=== PATIENT | male | born 1935 | race Caucasian/White ===

== ENCOUNTER 2020-04-14 07:56 | Inpatient (IN) | payer MEDICARE, BC ==
[~2020-04-14] VITALS: Ht 177.8 cm; Wt 86.2 kg
[2020-04-14 08:23] LABS: BASOPHILS ABSOLUTE AUTO 0.07 K/mm3 (0.00-0.23); BASOPHILS PERCENT AUTO 0 % (0-2); EOSINOPHILS ABSOLUTE AUTO 0.14 K/mm3 (0.00-0.68); EOSINOPHILS PERCENT AUTO 1 % (0-6); Hematocrit 42.9 % (37.0-53.0); Hemoglobin 13.7 g/dL (13.5-17.5); IMMATURE GRAN ABSOLUTE AUTO 0.12 K/mm3 (0.00-0.10); IMMATURE GRAN PERCENT AUTO 1 % (0-1); LYMPHOCYTES ABSOLUTE AUTO 2.45 K/mm3 (0.84-5.20); LYMPHOCYTES PERCENT AUTO 15 % (21-46); MONOCYTES ABSOLUTE AUTO 0.95 K/mm3 (0.16-1.47); MONOCYTES PERCENT AUTO 6 % (4-13); Mean Corpuscular HGB 33.3 pg (26.0-34.0); Mean Corpuscular HGB Conc 31.9 g/dL (31.5-36.5); Mean Corpuscular Volume 104 fL (80-100); Mean Platelet Volume 10.8 fL (9.1-12.4); NEUTROPHILS ABSOLUTE AUTO 12.23 K/mm3 (1.96-9.15); NEUTROPHILS PERCENT AUTO 77 % (41-73); Platelet Count 183 K/mm3 (150-400); RDW Coefficient Variation 13.3 % (11.7-14.2); RDW Standard Deviation 51.3 fL (35.1-46.3); Red Blood Cell Count 4.11 M/mm3 (4.30-5.90); White Blood Cell Count 15.96 K/mm3 (4.00-11.30)
[2020-04-14 08:57] LABS: Albumin, Blood 3.6 g/dL (3.4-5.0); Albumin/Globulin Ratio 1.1 (0.8-1.8); Bilirubin, Total 0.5 mg/dL (0.1-1.0); Bun/Creatinine Ratio 22.4 (12.0-20.0); Creatinine, Blood 1.61 mg/dL (0.60-1.20); Globulin, Blood 3.4 g/dL (2.2-4.0); Potassium, Blood 5.3 mmol/L (3.5-5.5)
[2020-04-14] MEDS ORDERED: ASPI81CH PO (12:43)
[2020-04-14] MEDS ORDERED: Lasix20 MG PO (12:44)
[2020-04-14] MEDS ORDERED: LISI5 PO (12:46)
[2020-04-14 13:39] LABS: Source, Urine Catheter
[2020-04-14 14:40] LABS: Appearance, Urine Clear (Clear); Color, Urine Yellow (P-Yellow); Leukocyte Esterase, Urine Neg (Neg); Nitrite, Urine Neg (Neg); Specific Gravity, Urine 1.005 (1.003-1.022)
[2020-04-14 14:42] LABS: Bilirubin, Urine Neg (Neg); Blood, Urine Neg (Neg); Glucose Qualitative, Urine Neg (Neg); Ketones, Urine Neg (Neg); Protein, Urine Trace (Neg); Urobilinogen, Urine NORM (Normal)
--- NOTE | 2020-04-14 16:10 | NUR ---
HOME MEDICATION LIST PT REPORTS HE DOES NOT KNOW HIS HOME MEDICATION DOSAGES. PT STATES HE HAS A LIST ON HIS COMPUTER; HOWEVER HE HAS NO ONE AVALIABLE TO GET HIS LIST OFF OF HIS COMPUTER. HIS PHARMACY IS IN [facility] AND HE REPORTS IT IS CLOSED TODAY. PT REPORTS HE RECENTLY MOVED HERE AND HAS NOT HAD HIS PRESCRIPTIONS TRANSFERRED.
--- NOTE | 2020-04-14 18:38 | NUR ---
SHIFT SUMMARY PT WAS ADMITTED TODAY AFTER A GROUND LEVEL FALL AT [facility], HE HAS A RIGHT HIP FX. PT HAS BEEN ALERT AND ORIENTED T/O THE DAY. HE HAS A RIGHT SIDE FACIAL DROOP AND SLURRED SPEECH AT BASELINE, R/T A RECENT CVA. PAIN HAS BEEN MANAGED WITH IV PAIN MEDICATION. DILAUDID APPEARS TO WORK THE BEST. FENTANYL PROVIDED NO RELIEF AND RESULTED IN NAUSEA. BUCKS TRACTION IN PLACE TO DECREASE SPASMS AND APPEARS TO HAVE IMPROVED PAIN. PT IS PAINFUL WITH REPOSITIONING BUT TOLERATES WELL. VSS. PLAN FOR POSSIBLE SURGERY TOMORROW.
--- NOTE | 2020-04-14 19:34 | NUR ---
SPOKE TO HOSPITALIST FARIHA REGARDING PT'S PAIN. FENT MADE PT NAUSEOUS AND PO NORCO WAS INEFFECTIVE PT REPORTED 9/10 PAIN BEFORE AND AFTER MEDICATION, PAIN JUMPED TO 12/10 WHEN MOVING PER PATIENT. NEW ORDERS FOR MEDICATIONS RECIEVED SEE EMAR, WILL ADMINISTER AND MONITOR PAIN LEVELS. ORDERS FOR CONTINOUS BIOX RECIEVED WILL CALL RESPIRATORY.
--- NOTE | 2020-04-14 22:35 | NUR ---
ASSUMED CARE OF PATIENT FROM MABEL ROMERO
--- NOTE | 2020-04-15 03:27 | NUR ---
SHIFT SUMMARY A/O, ABLE TO MAKE NEEDS KNOWN. MILD SLURRING OF SPEECH; DIFFICULTY TO UNDERSTAND AT TIMES. COOPERATIVE WITH CARE. CALLS AND ANSWERS QUESTIONS APPROPRIATELY. C/O PAIN/DISCOMFORT TO R HIP/LEG, RATES 10/10; MEDICATED PER EMAR. APPEARS TO REST OFF AND ON. NO ACUTE CHANGES NOTED OVERNIGHT. REMAINS IN TRACTION. WCTM. BED IN LOWEST POSITION. CALL LIGHT AND BELONGINGS WITHIN REACH. REPORT TO ONCOMING RN.
[2020-04-15 03:57] LABS: BASOPHILS ABSOLUTE AUTO 0.06 K/mm3 (0.00-0.23); BASOPHILS PERCENT AUTO 1 % (0-2); EOSINOPHILS ABSOLUTE AUTO 0.24 K/mm3 (0.00-0.68); EOSINOPHILS PERCENT AUTO 2 % (0-6); Hematocrit 45.8 % (37.0-53.0); Hemoglobin 14.6 g/dL (13.5-17.5); IMMATURE GRAN ABSOLUTE AUTO 0.05 K/mm3 (0.00-0.10); IMMATURE GRAN PERCENT AUTO 0 % (0-1); LYMPHOCYTES ABSOLUTE AUTO 2.69 K/mm3 (0.84-5.20); LYMPHOCYTES PERCENT AUTO 24 % (21-46); MONOCYTES ABSOLUTE AUTO 1.43 K/mm3 (0.16-1.47); MONOCYTES PERCENT AUTO 13 % (4-13); Mean Corpuscular HGB 33.7 pg (26.0-34.0); Mean Corpuscular HGB Conc 31.9 g/dL (31.5-36.5); Mean Corpuscular Volume 106 fL (80-100); Mean Platelet Volume 10.4 fL (9.1-12.4); NEUTROPHILS ABSOLUTE AUTO 6.92 K/mm3 (1.96-9.15); NEUTROPHILS PERCENT AUTO 61 % (41-73); Platelet Count 148 K/mm3 (150-400); RDW Coefficient Variation 13.2 % (11.7-14.2); RDW Standard Deviation 51.9 fL (35.1-46.3); Red Blood Cell Count 4.33 M/mm3 (4.30-5.90); White Blood Cell Count 11.39 K/mm3 (4.00-11.30)
[2020-04-15 04:15] LABS: Bun/Creatinine Ratio 23.2 (12.0-20.0); Calcium, Blood 8.6 mg/dL (8.5-10.1); Creatinine, Blood 1.51 mg/dL (0.60-1.20); Potassium, Blood 5.9 mmol/L (3.5-5.5)
--- NOTE | 2020-04-15 08:11 | NUR ---
PT TAKEN TO SURGERY AT APPROXIMATELY 0800.
--- NOTE | 2020-04-15 09:39 | NUR ---
04/15/20 0939 Britt Rossi PATIENT ARRIVED WITH TORRES. DID NOT WANT PAS ON NON OPERATVE LEG.
--- NOTE | 2020-04-15 17:04 | NUR ---
PAIN PT STARTED HAVING EXTREME PAIN AFTER SURGERY. HE WAS MOANING IN PAIN DESPITE HAVING IV AND PO PAIN MEDICATION. DR. MCCURDY WAS NOTIFIED. SINCE PAIN MEDICATION WAS NOT HELPFUL, PT WAS ASSISTED TO THE EDGE OF THE BED FOR CHANGE IN POSITION. PT TOLERATED SITTING AT THE EDGE OF THE BED WELL AND WAS ASSISTED TO SIT IN A RECLINER. PAIN HAS IMPROVED.
--- NOTE | 2020-04-15 19:48 | NUR ---
SHIFT SUMMARY PT IS POD#0 TODAY FROM R YEMI HIP WITH DR. MCCURDY. PAIN HAS IMPROVED THIS EVENING WITH AFTER PT SAT UP TO THE CHAIR. VSS. REPORT GIVEN TO ARLETH MONROE.
[2020-04-16 04:16] LABS: BASOPHILS ABSOLUTE AUTO 0.04 K/mm3 (0.00-0.23); BASOPHILS PERCENT AUTO 0 % (0-2); EOSINOPHILS ABSOLUTE AUTO 0.05 K/mm3 (0.00-0.68); EOSINOPHILS PERCENT AUTO 0 % (0-6); Hematocrit 34.9 % (37.0-53.0); Hemoglobin 10.9 g/dL (13.5-17.5); IMMATURE GRAN ABSOLUTE AUTO 0.07 K/mm3 (0.00-0.10); IMMATURE GRAN PERCENT AUTO 1 % (0-1); LYMPHOCYTES PERCENT AUTO 14 % (21-46); MONOCYTES ABSOLUTE AUTO 1.63 K/mm3 (0.16-1.47); MONOCYTES PERCENT AUTO 12 % (4-13); Mean Corpuscular HGB 32.8 pg (26.0-34.0); Mean Corpuscular HGB Conc 31.2 g/dL (31.5-36.5); Mean Corpuscular Volume 105 fL (80-100); Mean Platelet Volume 11.1 fL (9.1-12.4); NEUTROPHILS PERCENT AUTO 73 % (41-73); Platelet Count 130 K/mm3 (150-400); RDW Coefficient Variation 13.1 % (11.7-14.2); RDW Standard Deviation 50.4 fL (35.1-46.3); Red Blood Cell Count 3.32 M/mm3 (4.30-5.90); White Blood Cell Count 14.09 K/mm3 (4.00-11.30)
--- NOTE | 2020-04-16 04:57 | NUR ---
SHIFT SUMMARY POD 1 R YEMI HIP [id number], SINUS TACH OCCASIONALLY DURING THE NIGHT. PT MEDICATED FOR PAIN WITH 1 ROXICODONE AT A TIME, TOLERATED WELL PAIN MANAGED AROUND A 3-4 OF 10. C/O HEARTBURN DURING SHIFT, MEDICATION EFFECTIVE FOR PT. ON .5 LITERS VIA NASAL CANULA OCCASIONAL DIPS TO 88% WHILE SLEEPING. PT DENIES SOB DURING NIGHT. PT REPORTED BEING ABLE TO GET SOME SLEEP TONIGHT. PLAN WILL BE TO WORK WITH PT/OT.
[2020-04-16 14:34] LABS: BASOPHILS ABSOLUTE AUTO 0.05 K/mm3 (0.00-0.23); BASOPHILS PERCENT AUTO 0 % (0-2); EOSINOPHILS ABSOLUTE AUTO 0.12 K/mm3 (0.00-0.68); EOSINOPHILS PERCENT AUTO 1 % (0-6); Hematocrit 34.1 % (37.0-53.0); Hemoglobin 10.9 g/dL (13.5-17.5); IMMATURE GRAN ABSOLUTE AUTO 0.04 K/mm3 (0.00-0.10); IMMATURE GRAN PERCENT AUTO 0 % (0-1); LYMPHOCYTES ABSOLUTE AUTO 1.47 K/mm3 (0.84-5.20); LYMPHOCYTES PERCENT AUTO 12 % (21-46); MONOCYTES ABSOLUTE AUTO 1.42 K/mm3 (0.16-1.47); MONOCYTES PERCENT AUTO 12 % (4-13); Mean Corpuscular HGB 33.6 pg (26.0-34.0); Mean Corpuscular Volume 105 fL (80-100); NEUTROPHILS ABSOLUTE AUTO 9.03 K/mm3 (1.96-9.15); NEUTROPHILS PERCENT AUTO 75 % (41-73); Platelet Count 127 K/mm3 (150-400); RDW Coefficient Variation 13.1 % (11.7-14.2); RDW Standard Deviation 50.8 fL (35.1-46.3); Red Blood Cell Count 3.24 M/mm3 (4.30-5.90); White Blood Cell Count 12.13 K/mm3 (4.00-11.30)
[2020-04-16 14:49] LABS: Bun/Creatinine Ratio 23.2 (12.0-20.0); Calcium, Blood 8.8 mg/dL (8.5-10.1); Creatinine, Blood 1.77 mg/dL (0.60-1.20); Potassium, Blood 5.6 mmol/L (3.5-5.5)
--- NOTE | 2020-04-16 17:41 | NUR ---
SHIFT SUMMARY PT A&OX4, VSS, RA WHILE AWAKE AND DEEP BREATHING, AND 0.5L NC AT REST, BIOX ON, TELE SR 90S T/0 SHIFT THEN DC'D. POD1 R YEMI HIP, AQUACEL CDI, WBAT, AMB W/FWW&GB & 2 PP MAX ASSIST W/ENCOURAGEMENT AND CUES; UP TO CHAIR T/O SHIFT. MACDONALD DC'D AT 1645, ATTENDS ON, AWAITING POST MACDONALD VOID. GRETA PO, DENIES N&V; DYSPHAGIA PRECAUTIONS; MEDS WHOLE ONE AT A TIME WITH APPLESAUCE. PAIN MANAGED WITH 5-10 MG OXYCODONE, TYLENOL AND 0.5 DILAUDID X1. WILL REPORT TO ONCOMING NOC RN.
--- NOTE | 2020-04-17 03:57 | NUR ---
SHIFT SUMMARY PT IS A/O X4, VERY HARD OF HEARING. PT REQUIRED 3 PERSON ASSIST TO TRANSFER FROM CHAIR TO BED, USING GAIT BELT AND FWW. PT HAS BEEN INCONTINENT OF URINE; ATTENS IN PLACE. PT IS VOIDING AND ATTENS HAVE BEEN CHANGED PRN. PT TAKES MEDS WITH APPLESAUCE. R HIP DOES HAVE SOME SWELLING AND BRUISING. HIP IS SOFT AND PULSES PRESENT. BIOX HAS BEEN IN PLACE DURING THE NIGHT. PAIN MANAGED WITH PO PAIN MED PER ORDER. NO ACUTE CHANGES OVERNIGHT.
[2020-04-17 04:27] LABS: BASOPHILS ABSOLUTE AUTO 0.04 K/mm3 (0.00-0.23); BASOPHILS PERCENT AUTO 0 % (0-2); EOSINOPHILS PERCENT AUTO 2 % (0-6); Hematocrit 31.1 % (37.0-53.0); Hemoglobin 9.7 g/dL (13.5-17.5); IMMATURE GRAN ABSOLUTE AUTO 0.03 K/mm3 (0.00-0.10); IMMATURE GRAN PERCENT AUTO 0 % (0-1); LYMPHOCYTES ABSOLUTE AUTO 1.82 K/mm3 (0.84-5.20); LYMPHOCYTES PERCENT AUTO 17 % (21-46); MONOCYTES ABSOLUTE AUTO 1.26 K/mm3 (0.16-1.47); MONOCYTES PERCENT AUTO 12 % (4-13); Mean Corpuscular HGB 32.6 pg (26.0-34.0); Mean Corpuscular HGB Conc 31.2 g/dL (31.5-36.5); Mean Corpuscular Volume 104 fL (80-100); Mean Platelet Volume 11.4 fL (9.1-12.4); NEUTROPHILS ABSOLUTE AUTO 7.16 K/mm3 (1.96-9.15); NEUTROPHILS PERCENT AUTO 68 % (41-73); Platelet Count 114 K/mm3 (150-400); RDW Standard Deviation 49.8 fL (35.1-46.3); Red Blood Cell Count 2.98 M/mm3 (4.30-5.90); White Blood Cell Count 10.51 K/mm3 (4.00-11.30)
[2020-04-17 04:41] LABS: Bun/Creatinine Ratio 23.3 (12.0-20.0); Calcium, Blood 8.6 mg/dL (8.5-10.1); Creatinine, Blood 1.8 mg/dL (0.60-1.20); Potassium, Blood 5.6 mmol/L (3.5-5.5)
--- NOTE | 2020-04-17 13:27 | NUR ---
REPORT PROVIDED TO ADRIEL HAMMER [facility]
--- NOTE | 2020-04-17 16:48 | NUR ---
AQUACEL DRESSING CHANGED TODAY PRIOR TO DC
== END 2020-04-17 16:23 | disposition home or self-care (01) | DRG 470 ==
LOC: ER 07:56 → SURS 11:39
PROVIDERS: Emergency Medicine; Internal Medicine; Orthopaedic Surgery; ADMIT Internal Medicine
PROC: 0SRR0J9 Replacement of Right Hip Joint, Femoral Surface with Synthetic Substitute, Cemented, Open Approach (ICD-10-PCS; principal; 2020-04-15 08:30)
DX: S72.001A Fracture of unspecified part of neck of right femur, initial encounter for closed fracture (principal); W19.XXXA Unspecified fall, initial encounter; E87.5 Hyperkalemia; J44.9 Chronic obstructive pulmonary disease, unspecified; I12.9 Hypertensive chronic kidney disease with stage 1 through stage 4 chronic kidney disease, or unspecified chronic kidney disease; N18.3 Chronic kidney disease, stage 3 (moderate); Z66 Do not resuscitate; Z86.73 Personal history of transient ischemic attack (TIA), and cerebral infarction without residual deficits; Z87.891 Personal history of nicotine dependence
CPT/HCPCS: 36415; 71045; 72170; 73502; 73552; 74220; 80048; 80053; 85025; 92526; 92610; 93005; 93010; 94762; 96374; 96375; 97110; 97162; 97166; 97530; 97535; 99285-25; A9270; A9270-GY; C1713; C1776; J0171; J0690; J0735; J1170; J1650; J1885; J2250; J2405; J2704; J2795; J3010; J3360; J7030; U0002

== ENCOUNTER 2020-09-24 16:48 | Inpatient (IN) | payer OTHER, MEDICARE, BC ==
[~2020-09-24] VITALS: Ht 177.8 cm; Wt 88.7 kg
[~2020-09-24 16:48] MED LIST: Aspirin EC81 MG PO; LISI5 PO; Lasix20 MG PO
[2020-09-24] MEDS ORDERED: SIMVASTATIN 5 MG (17:04)
[2020-09-24 17:19] LABS: BASOPHILS ABSOLUTE AUTO 0.03 K/mm3 (0.00-0.23); BASOPHILS PERCENT AUTO 0 % (0-2); EOSINOPHILS ABSOLUTE AUTO 0.06 K/mm3 (0.00-0.68); EOSINOPHILS PERCENT AUTO 1 % (0-6); Hematocrit 40.4 % (37.0-53.0); Hemoglobin 12.6 g/dL (13.5-17.5); IMMATURE GRAN ABSOLUTE AUTO 0.05 K/mm3 (0.00-0.10); IMMATURE GRAN PERCENT AUTO 0 % (0-1); LYMPHOCYTES ABSOLUTE AUTO 0.74 K/mm3 (0.84-5.20); LYMPHOCYTES PERCENT AUTO 6 % (21-46); MONOCYTES ABSOLUTE AUTO 0.94 K/mm3 (0.16-1.47); MONOCYTES PERCENT AUTO 7 % (4-13); Mean Corpuscular HGB Conc 31.2 g/dL (31.5-36.5); Mean Corpuscular Volume 103 fL (80-100); Mean Platelet Volume 10.7 fL (9.1-12.4); NEUTROPHILS ABSOLUTE AUTO 10.82 K/mm3 (1.96-9.15); NEUTROPHILS PERCENT AUTO 86 % (41-73); Platelet Count 129 K/mm3 (150-400); RDW Coefficient Variation 13.4 % (11.7-14.2); RDW Standard Deviation 51.2 fL (35.1-46.3); Red Blood Cell Count 3.94 M/mm3 (4.30-5.90); White Blood Cell Count 12.64 K/mm3 (4.00-11.30)
[2020-09-24 17:57] LABS: Albumin, Blood 3.2 g/dL (3.4-5.0); Bilirubin, Total 0.3 mg/dL (0.1-1.0); Calcium, Blood 9.3 mg/dL (8.5-10.1); Creatinine, Blood 2.27 mg/dL (0.60-1.20); Globulin, Blood 3.3 g/dL (2.2-4.0); Potassium, Blood 5.9 mmol/L (3.5-5.5); Total Protein, Blood 6.5 g/dL (6.4-8.2)
[2020-09-24 18:33] LABS: Influenza A, PCR Negative (NEGATIVE); Influenza B, PCR Negative (NEGATIVE); Resp Syncytial Virus, PCR Negative (NEGATIVE); SARS-Cov-2 (COVID-19) PCR, MMC Positive (NEGATIVE)
[2020-09-24] MEDS ORDERED: SIMV10 PO (18:47)
[2020-09-24] MEDS ORDERED: LISI5 PO (18:48)
[2020-09-24] MEDS ORDERED: FAMO10 PO (23:09)
[2020-09-24] MEDS ORDERED: ACET325 PO (23:12)
[2020-09-24 23:52] LABS: Bun/Creatinine Ratio 31.6 (12.0-20.0); Calcium, Blood 8.6 mg/dL (8.5-10.1); Creatinine, Blood 1.96 mg/dL (0.60-1.20); Potassium, Blood 5.6 mmol/L (3.5-5.5)
[2020-09-25 05:48] LABS: BASOPHILS ABSOLUTE AUTO 0.02 K/mm3 (0.00-0.23); BASOPHILS PERCENT AUTO 0 % (0-2); EOSINOPHILS ABSOLUTE AUTO 0.01 K/mm3 (0.00-0.68); EOSINOPHILS PERCENT AUTO 0 % (0-6); Hematocrit 37.1 % (37.0-53.0); Hemoglobin 11.5 g/dL (13.5-17.5); IMMATURE GRAN ABSOLUTE AUTO 0.05 K/mm3 (0.00-0.10); IMMATURE GRAN PERCENT AUTO 0 % (0-1); LYMPHOCYTES ABSOLUTE AUTO 2.02 K/mm3 (0.84-5.20); LYMPHOCYTES PERCENT AUTO 16 % (21-46); MONOCYTES PERCENT AUTO 9 % (4-13); Mean Corpuscular HGB 31.8 pg (26.0-34.0); Mean Corpuscular Volume 103 fL (80-100); NEUTROPHILS ABSOLUTE AUTO 9.47 K/mm3 (1.96-9.15); NEUTROPHILS PERCENT AUTO 75 % (41-73); Platelet Count 106 K/mm3 (150-400); RDW Coefficient Variation 13.4 % (11.7-14.2); RDW Standard Deviation 51.2 fL (35.1-46.3); Red Blood Cell Count 3.62 M/mm3 (4.30-5.90); White Blood Cell Count 12.67 K/mm3 (4.00-11.30)
[2020-09-25 06:11] LABS: Bun/Creatinine Ratio 27.9 (12.0-20.0); Calcium, Blood 8.8 mg/dL (8.5-10.1); Creatinine, Blood 1.97 mg/dL (0.60-1.20); Potassium, Blood 5.6 mmol/L (3.5-5.5); Thyroid Stimulating Hormone 0.321 uIU/mL (0.360-4.800)
--- NOTE | 2020-09-25 06:15 | NUR ---
pt arrived to unit at 2231 via stretcher. pt is a/o x4 with forgetfulness. pleasant and cooperative. introduced to room and staff members. sr at 81 per tele this am. pt denies pain. pt has been afebrile with occasional coughs. pt states he does produce sputum from time to time. pt has hx of stroke with r side deficit. pt stated this happened in 2019. pt has right side facial droop and right sided numbness. speech is garbled. pt states he uses a walker and sometimes a wc at home. pleasant and cooperative. vss. pt's son Jose Luis has been updated about pt's status with consent to do so allowed by pt. pt on room air maintaining sats in the high 90's. no sob noted. lung sounds dim. will give report to oncoming rn.
--- NOTE | 2020-09-25 13:33 | NUR ---
PATIENT REPORTS HX OF DYSPHAGIA POST STROKE. DOES NOT PRACTICE ANY FOOD OR LIQUID MODIFICATIONS AT HOME. ABLE TO TOLERATE PO WITHOUT COUGHING AT THIS TIME/PASSED BEDSIDE SWALLOW EVAL. DR. MILES NOTIFIED. NO ORDERS FOR ETHANOL MAINTENANCE MECHANIC RECIEVED.
--- NOTE | 2020-09-26 03:50 | NUR ---
SHIFT SUMMARY ADMITTED FOR RT LOWER LOBE PNEUMONIA. COVID POSITIVE. LIMITED CODE: NO CPR, INTUBATION OK. PT FROM [facility], PLAN WILL BE TO DC THERE SOON ACCEPTED. HX OF CVA: RT SIDED DEFICITS. IV AND PO ANTIBIOTICS SCHEDULED. AFIB NOTED ON ADMIT. TELEMETRY THIS SHIFT: NSR @ 88 BPM. INCONTINENT, WE ARE USING A CONDOM CATHETER. MONITORING WBC LEVELS WITH MORNING LABS.
[2020-09-26 05:01] LABS: BASOPHILS ABSOLUTE AUTO 0.02 K/mm3 (0.00-0.23); BASOPHILS PERCENT AUTO 0 % (0-2); EOSINOPHILS ABSOLUTE AUTO 0.11 K/mm3 (0.00-0.68); EOSINOPHILS PERCENT AUTO 1 % (0-6); Hematocrit 39.8 % (37.0-53.0); Hemoglobin 12.6 g/dL (13.5-17.5); IMMATURE GRAN ABSOLUTE AUTO 0.02 K/mm3 (0.00-0.10); IMMATURE GRAN PERCENT AUTO 0 % (0-1); LYMPHOCYTES ABSOLUTE AUTO 1.47 K/mm3 (0.84-5.20); LYMPHOCYTES PERCENT AUTO 17 % (21-46); MONOCYTES ABSOLUTE AUTO 0.78 K/mm3 (0.16-1.47); MONOCYTES PERCENT AUTO 9 % (4-13); Mean Corpuscular HGB 32.4 pg (26.0-34.0); Mean Corpuscular HGB Conc 31.7 g/dL (31.5-36.5); Mean Corpuscular Volume 102 fL (80-100); Mean Platelet Volume 11.1 fL (9.1-12.4); NEUTROPHILS ABSOLUTE AUTO 6.12 K/mm3 (1.96-9.15); NEUTROPHILS PERCENT AUTO 72 % (41-73); Platelet Count 102 K/mm3 (150-400); RDW Coefficient Variation 13.4 % (11.7-14.2); RDW Standard Deviation 50.7 fL (35.1-46.3); Red Blood Cell Count 3.89 M/mm3 (4.30-5.90); White Blood Cell Count 8.52 K/mm3 (4.00-11.30)
[2020-09-26 05:22] LABS: Albumin, Blood 2.9 g/dL (3.4-5.0); Albumin/Globulin Ratio 0.9 (0.8-1.8); Bilirubin, Total 0.4 mg/dL (0.1-1.0); Bun/Creatinine Ratio 25.7 (12.0-20.0); Calcium, Blood 9.4 mg/dL (8.5-10.1); Creatinine, Blood 1.75 mg/dL (0.60-1.20); Globulin, Blood 3.3 g/dL (2.2-4.0); Potassium, Blood 5.3 mmol/L (3.5-5.5); Total Protein, Blood 6.2 g/dL (6.4-8.2)
--- NOTE | 2020-09-26 17:26 | NUR ---
SUMMARY PT SITTING UP IN BED WATCHING TV, PT HAS BEEN PLEASANT AND COOPERATIVE WITH CARE, USES HIS CALL LIGHT APPROPRIATELY, HAS BEEN INCONTINENT OF BOWEL, CONDOM CATH REMAINS IN PLACE, DR MILES PLANNED TO DISCHARGE THE PT BACK HOME TO [facility], SPOKE WITH THE CONTRACTS ADMINISTRATOR ABOUT THE PT RETURNING HOME, SHE CALLED BACK TO INFORM ME THAT [facility] IS NOT RECIEVING ANY PATIENTS BACK AT THIS TIME AND THAT THEY ARE IN LOCK-DOWN, INFORMED THE PT OF THIS AND INFORMED DR MILES AND THE GOLF STARTER AND RANGER, DISCHARGE IS CURRENTLY ON HOLD, PT REMAINS ON ROOM AIR, VSS, WILL CONT TO MONITOR
--- NOTE | 2020-09-27 05:47 | NUR ---
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 He has hx of CVA & rt hip replacement. CO insommnia after 2 AM, peppermint tea & tylenol 650 mg po given with helpful effect. On room air, has dc order when Greyson Recio can readmit PT.
--- NOTE | 2020-09-27 17:26 | NUR ---
SHIFT SUMMARY PATIENT ALERT AND ORIENTED THROUGHOUT THIS SHIFT. PATIENT HAS BEEN DISCHARGED, YET HIS FACILITY IS NOT CURRENTLY ACCEPTING PATIENTS WITH POSITIVE COVID TESTS. PATIENT LAYING IN BED THROUGHOUT THIS SHIFT. PATIENT REPOSITIONS SELF AND SITS ON THE SIDE OF THE BED. PATIENT CURRENTLY HAS A CONDOM CATH IN PLACE DUE TO INCONTINENCE. PATIENT USES THE CALL LIGHT APPROPRIATELY AND HAS DENIED FURTHER NEEDS THROUGHOUT THIS SHIFT. PATIENT CURRENTLY SITTING UP IN BED WATCHING TELEVISION.
[2020-09-28 05:44] LABS: Hematocrit 40.3 % (37.0-53.0); Hemoglobin 12.9 g/dL (13.5-17.5); Mean Corpuscular HGB 32.3 pg (26.0-34.0); Mean Corpuscular Volume 101 fL (80-100); Mean Platelet Volume 11.4 fL (9.1-12.4); Platelet Count 112 K/mm3 (150-400); RDW Coefficient Variation 13.2 % (11.7-14.2); RDW Standard Deviation 49.3 fL (35.1-46.3); White Blood Cell Count 6.52 K/mm3 (4.00-11.30)
--- NOTE | 2020-09-28 05:44 | NUR ---
SHIFT SUMMARY ASSUMED CARE OF 1900. PT IS A/OX4. HEART SOUNDS REGULAR, LUNG SOUNDS HAVE CRACKLES IN THE R SIDE, DENIES SOB, PT HAD HACKING, NONPRODUCTIVE COUGH. PT USED CONDOM CATH T/O THE NIGHT DUE TO INCONTINENCE. PT STATES HE HAD A HARD TIME SLEEPING DURING THE NIGHT. NO ACUTE EVENTS DURING THE NIGHT. CALL LIGHT IN REACH, BED IN LOWEST POSTION.
[2020-09-28 06:05] LABS: Bun/Creatinine Ratio 26.5 (12.0-20.0); Calcium, Blood 8.7 mg/dL (8.5-10.1); Creatinine, Blood 2.26 mg/dL (0.60-1.20); Potassium, Blood 5.6 mmol/L (3.5-5.5)
[2020-09-28] MEDS ORDERED: ALBU90OI INH (16:08)
[2020-09-28] MEDS ORDERED: AMLO5 PO (16:08)
[2020-09-28] MEDS ORDERED: AZIT500 PO (16:09)
[2020-09-28] MEDS ORDERED: DOCU100 PO (16:09)
[2020-09-28] MEDS ORDERED: MIRT30ST PO (16:10)
--- NOTE | 2020-09-28 18:48 | NUR ---
SHIFT SUMMARY PATIENT ALERT AND ORIENTED THOUGHTOUT THIS SHIFT. PATIENT NAPPED MUCH OF THE MORNING, THEN AGAIN THIS AFTERNOON AFTER STATING THAT HE HAS HAD VERY LITTLE SLEEP FOR THE LAST COUPLE DAYS. PATIENT UP WITH MINIMAL ASSIST TO THE BATHROOM. PATIENT SHOWERED WITH LITTLE ASSISTANCE FROM THE ELECTROSTATIC POWDER COATING TECHNICIAN. PATIENT TO BE DISCHARGED, AWAITING TRANSPORTATION AT THIS TIME. PATIENT STATES NO FURTHER NEEDS AT THIS TIME.
--- NOTE | 2020-09-28 19:23 | NUR ---
ASSUMED CARE: JUST FINISHED REPORT WHEN TRANSPORT ARRIVED TO REPAIRER SASH AND DOOR THE PATIENT. ASSISTED HIM IN A CALL TO DISPATE OF THE TRANSPORT SO HE CAN MAKE HIS PAYMENT. CARD WAS GIVEN BACK TO HIM. ALL BELONGINGS SENT WITH PATIENT. MASK WAS PLACED ON PATIENT PRIOR TO LEAVING THE UNIT. TRANSPORT HAD ON PROPER PPE WELL. PATIENT LEFT AT 1922
== END 2020-09-28 19:29 | disposition home or self-care (01) | DRG 871 ==
LOC: ER 16:48 → MEDS 20:20 → ENPENDDIS 09-26 15:28 → MEDS 09-27 21:53
PROVIDERS: Internal Medicine; Physician Assistant; ADMIT Internal Medicine
DX: A41.89 Other specified sepsis (principal); U07.1 COVID-19; J12.89 Other viral pneumonia; I69.351 Hemiplegia and hemiparesis following cerebral infarction affecting right dominant side; J44.0 Chronic obstructive pulmonary disease with (acute) lower respiratory infection; E78.5 Hyperlipidemia, unspecified; E86.0 Dehydration; E87.5 Hyperkalemia; F01.50 Vascular dementia, unspecified severity, without behavioral disturbance, psychotic disturbance, mood disturbance, and anxiety; I12.9 Hypertensive chronic kidney disease with stage 1 through stage 4 chronic kidney disease, or unspecified chronic kidney disease; N18.30 Chronic kidney disease, stage 3 unspecified; G47.00 Insomnia, unspecified; Z87.891 Personal history of nicotine dependence
CPT/HCPCS: 0241U; 36415; 71045; 80048; 80053; 83605; 83735; 84443; 85025; 85027; 87040; 93005; 93010; 96361; 96365; 96375; 99285-25; A9270; J0610; J0696; J1650; J1815; J7030